=== PATIENT | male | born 1955 | race Caucasian/White ===

== ENCOUNTER 2017-08-03 19:12 | Emergency (ER) | payer OTHER ==
[~2017-08-03] VITALS: Ht 190.5 cm; Wt 99.8 kg
[2017-08-03 19:25] VITALS: BP 139/84
[2017-08-03] MEDS ORDERED: AMOX1TAB11 PO (19:29)
--- NOTE | 2017-08-03 19:30 | PHYS DOC ---
Past Medical History Additional Past Medical Histor: pulm fibrosis Additional Past Surgical Histo: lung transplant Adult General Chief Complaint Chief Complaint: EARACHE/EAR PAIN HPI HPI Patient is a 62 year old male presents to the emergency department with complaints of left ear pain for one day. No reported fever. No other symptoms. Review of Systems Review of Systems Constitutional: Denies fever or chills [] Eyes: Denies change in visual acuity, redness, or eye pain [] HENT: Denies nasal congestion or sore throat, left ear pain [] Respiratory: Denies cough or shortness of breath [] Cardiovascular: No additional information not addressed in HPI [] GI: Denies abdominal pain, nausea, vomiting, bloody stools or diarrhea [] : Denies dysuria or hematuria [] Musculoskeletal: Denies back pain or joint pain [] Integument: Denies rash or skin lesions [] Neurologic: Denies headache, focal weakness or sensory changes [] Endocrine: Denies polyuria or polydipsia [] All other systems were reviewed and found to be within normal limits, except as documented in this note. Physical Exam Physical Exam Constitutional: Well developed, well nourished, no acute distress, non-toxic appearance. [] HENT: Normocephalic, atraumatic, bilateral external ears normal, left tympanic membrane erythematous with fluid bulge oropharynx moist, no oral exudates, nose normal. [] Eyes: PERRLA, EOMI, conjunctiva normal, no discharge. [] Neck: Normal range of motion, no tenderness, supple, no stridor. [] Cardiovascular:Heart rate regular rhythm, no murmur [] Lungs & Thorax: Bilateral breath sounds clear to auscultation [] Skin: Warm, dry, no erythema, no rash. [] EKG EKG [] Radiology/Procedures Radiology/Procedures [] Course & Med Decision Making Course & Med Decision Making Pertinent Labs and Imaging studies reviewed. (See chart for details) [] Dragon Disclaimer Dragon Disclaimer This electronic medical record was generated, in whole or in part, using a voice recognition dictation system. Departure Departure Impression: Primary Impression: Otitis media Disposition: 01 HOME, SELF-CARE Condition: STABLE Referrals: NO PCP (PCP) [facility] Patient Instructions: Otitis Media, Adult Scripts Amoxicillin/Potassium Clav (AMOX TR-K CLV 875-125 MG TAB) 1 Each Tablet 1 TAB PO BID, #20 TAB Prov: RONI MADRIGAL APRN 08/03/17 Problem Qualifiers Primary Impression: Otitis media Otitis media type: serous Chronicity: acute Laterality: left Recurrence: not specified as recurrent Qualified Codes: H65.02 - Acute serous otitis media, left ear RONI MADRIGAL [employer] INTEGRATION ENGINEER Aug 03, 2017 19:30
== END 2017-08-03 19:38 | disposition home or self-care (01) ==
LOC: ER 19:12
DX: H65.02 Acute serous otitis media, left ear (principal); Z94.2 Lung transplant status
CPT/HCPCS: 99283